=== PATIENT | female | born 1955 | race Caucasian/White ===

== ENCOUNTER 2023-05-25 06:16 | Inpatient (IN) | payer OTHER, SELFPAY ==
[2023-05-17 11:46] VITALS: BMI 25.6
[2023-05-25] VITALS (16 sets, daily range): BP systolic 117–147; BP diastolic 37–85; PULSE 71–96; RESP 10–98; TEMP 35.9–36.6; O2SAT 12–99; BMI 25.2
--- NOTE | 2023-05-25 | DI.RAD.S_ITS ---
PROCEDURE: XR LUMBAR SPINE 2-3V INDICATIONS: tlif l4-5 TECHNIQUE: 2 intraoperative fluoroscopic views of the lumbar spine were acquired. COMPARISON: None. FINDINGS: Intraoperative fluoroscopic images shows posterior fusion at L4-5 level with surgical hardware in place and intervertebral spacers seen. IMPRESSION: Fluoro guidance was provided intraoperatively for posterior fusion at L4-5 level. Dictated by: Mathew Gómez M.D. on 05/25/2023 at 12:19 Approved by: Mathew Gómez M.D. on 05/25/2023 at 12:19
[2023-05-25] MEDS: LACTATED RINGERS 1,000 ML 42 ML IV ×2 (06:38→12:31)
--- NOTE | 2023-05-25 07:44 | PM.PREOP ---
Pre-operative Note Interval Note History & Physical reviewed/Exam performed by Physician: Yes Changes to H&P: No
[2023-05-25] MEDS: CEFAZOLIN 2 GM/100 ML PREMIX 100 ML IV ×2 (08:15→16:29)
--- NOTE | 2023-05-25 08:41 | SUR.OPER ---
Prone on spine table, head in foam head support, padded chest and pelvic supports, gel pad at knees, lower legs supported by pillows; nipples, genitalia and toes free of pressure, arms secured on foam padded arm boards at <90 degrees abduction. Tape over blanket at thigh secured to table.
[2023-05-25] MEDS: BUPIVACAINE 0.25% (PF) 60 ML, EPINEPHrine 0.15 MG INJ (08:57)
[2023-05-25] MEDS: BUPIVACAINE LIPOSOME 266 MG/20 ML VIAL INJ (08:57)
--- NOTE | 2023-05-25 11:08 | P.OP_ITS ---
Operative Date/Time/Diagnoses Date of procedure: 05/25/23 Time of procedure: 07:50 Pre-op diagnosis: 1. L4-5 spinal stenosis with neurogenic claudication 2. L4-5 foraminal stenosis with radiculopathy Post-op diagnosis: same Procedure & Clinicians Procedure: 1. L4-5 Postero-lateral and posterior interbody fusion 2. L4-5 interbody cage placement. 3. L4-5 decompressive laminectomy with bilateral facetecomies 4. L4-5 Posterior non-segmental instrumentation 5. Beck[place] of bone marrow from iliac crest 6. Utilization of microsurgical technique and operating microscope Same procedure as scheduled: Yes Indications: Patient has been having chronic back pain and worsening lumbar radiculopathy and symptoms of neurogenic claudication. Patient had a prior L5-S1 laminectomy with significant epidural scarring at both L5-S1 level and scar tissue over the L4-5 area from the approach. Patient was found have severe L4-5 central and foraminal stenosis causing neurogenic claudication and radiculopathy. Patient failed multiple conservative management with worsening pain weakness and numbness in her lower extremity. Patient has been having difficulty performing activity of daily living. After discussing risks benefits of treatment options, patient elected proceed with surgery. Surgeon: Lizbeth Mcintyre Crown And Bridge Technician: Liana Romero Click Yes if Unassisted: No Anesthesia Type: General Operative Notes Closure Type: primary Specimen(s): none sent Prosthetic devices, grafts, tissues, transplants, or devices: Globus revolve screws, Rise cage Estimated Blood Loss (mL): 100 Blood products transfused: none Procedure in detail: Patient was seen in the preoperative area. Risks and benefits of the surgery was discussed with the patient. Informed consent was obtained from the patient and placed in the chart. Surgical site was marked. Patient was taken to the operative room. General anesthesia was administered. Prophylactic antibiotic was given to the patient less than 30 min before the incision was made. Patient was placed into a prone position on the Preet table. Patient's back was then prepped and draped in the sterile fashion. Time-out was performed at this time. Using AP and lateral C-arm imaging the interval between L4-5 was identified and marked on patient's back. A 2 inch incision 2 in from midline was made on the right side first. The fascia was incised in line with skin incision. Globus MARS retractors was placed inside the incision and docked onto the L4 lamina. Using microsurgical technique and operating microscope, a L4 laminectomy and L4- 5 facetectomy was performed using a Kerrison rongeur. The laminectomy and facetectomy was performed in order to decompress patient's cauda equina as well as the nerve roots exiting at the L4-5 level. Patient was found have scant amount of epidural scarring and subcutaneous scarring from the previous decompression surgery at L5-S1. The disc space at L4-5 was identified. And a total diskectomy was performed at L4-5 level. The endplates were decorticated using a rasp and shaver. The total diskectomy and decortication was performed at L4-5 level in order to to accomplish a L4-5 fusion. The local bone from the laminectomy and facetectomy was saved for local bone grafting. After the total diskectomy and decortication was completed, DBM bone graft material was combined with local bone that was harvested earlier. At this time, a separate skin is incision was made over the iliac crest. A Jamshidi needle was inserted into the iliac crest through a separate skin incision. 5 cc of bone marrow aspiration was obtained through the separate skin incision using a Jamshidi needle from the iliac crest. The bone marrow aspiration was combined with local bone and the DBM bone grafting material. The bone grafting material was placed into the L4-5 interbody space along with a expandable cage. The cage was expanded to its maximum height using the torque limiting screwdriver. At this time a mirror image incision was made on the left side. The fascia was incised in line with the skin incision. Globus MARS retractor was inserted and docked onto the L4-5 posterolateral gutter. Using the power drill, posterior- lateral decortication was performed at L4-5 level until bleeding cortical bone was identified. The remaining bone grafting material was placed into the L4-5 posterior lateral gutter he order to accomplish posterolateral fusion at the L4- 5 level. Using the double C-arm technique, pedicle screws were placed into the L4-5 pedicles bilaterally. This was done by placing the Jamshidi needle into the pedicles, then placing the guidewires over the Jamshidi needle, and finally placing the cannulated screws over the guidewires bilaterally. After the pedicle screws were placed, 2 titanium rods was locked into the heads of the pedicle screws using locking caps and torque limiting screwdriver. After all the hardware was placed, and confirmed with AP and lateral C-arm imaging, the wound was then irrigated with sterile normal saline and packed with Ray-Jane gauze for 3 min to accomplish hemostasis. After the gauze was removed the deep fascia was closed with #1 Vicryl suture. The subcutaneous layer was closed with 2-0 Vicryl. The skin was closed with skin devin. Patient tolerated the procedure well. There were no complications. The Operation could not have been safely performed without compromising the technical result or length of the procedure, without the assistance of a skilled surgical scrub tech. The surgical scrub tech was medically necessary for proper positioning, retraction and manipulation of instruments, proper exposure, surgical preparation, and manipulation of tissue. Neuro monitoring was utilized throughout the entire case which was stable throughout entire procedure. Complications: none Post-operative Condition: stable Disposition: PACU Plan for aftercare: Admit to inpatient hospital
[2023-05-25] MEDS: ACETAMINOPHEN IV 1,000 MG/100 ML VIAL 400 MG IV (11:27)
[2023-05-25] MEDS: HYDROMORPHONE 1 MG INJ IV ×2 (11:33→11:40)
[2023-05-25] MEDS: methocarbamoL 500 MG TABLET PO ×2 (11:54→14:40)
--- NOTE | 2023-05-25 12:52 | SUR.PHASEI ---
Transfered to room 214 in bed on 4L NC with 1 belongings bag. O2 sat on arrival 99%. Pt awake, alert and talking. Small 1inch cirle of shadow drainage on dressing.
[2023-05-25] MEDS: LACTATED RINGERS 1,000 ML 125 ML IV (13:38)
[2023-05-25] MEDS: HYDROMORPHONE 0.5 MG INJ IV (13:40)
--- NOTE | 2023-05-25 15:15 | PT.IIE ---
Current Diagnoses Spinal stenosis, lumbar region with neurogenic claudication (05/25/23) Intervertebral disc disorders with radiculopathy, lumbar region (05/25/23) Surgery Performed Operation Date: 05/25/23 07:45 Actual Procedures p L4-5 TLIF(Not Applicable) - Lizbeth Mcintyre MD Surgical History (Last Updated 05/17/23 @ 13:09 by Michelle Anders, RN) History of ankle surgery (2015) History of surgical removal of ganglion cyst Hx of laminectomy (2011) Medical History (Last Updated 05/17/23 @ 13:10 by Michelle Anders RN) LBBB (left bundle branch block) Mass of fallopian tube (04/2023) Sciatica Spinal stenosis Physical Therapy Inpatient Evaluation/Re-Eval M1 PT/OT-IP Prior Functional Status Start: 05/25/23 17:22 Freq: NEEDED Status: Active Protocol: Document 05/25/23 15:15 AB (Rec: 05/25/23 17:35 AB [id number]) Medical Review Prior Functional Status Medical History Reviewed Yes Communication able to make needs known Mobility and Gait pt stated that she was modified independent with all mobilities and ambulation wtithout AD but uses a FWW and a foot stool to get into the bed. Social History Household Members spouse Living Arrangements House Number of Floors (Floors) One Floor Number of Stairs To Enter/Railing? 2 platform steps to enter the house Home Environment Standard Height Toilet,Walk in Shower,Built-In Shower Seat Home Equipment Grab Bars In Shower Additional Social History Comment pt stated that her sons lives around the same property of where they live pt has an adjustable bed pt has a standard walker at home; spouse just ordered wheel attachments for pt's walker M2 PT-IP Current Condition Start: 05/25/23 17:22 Freq: NEEDED Status: Active Protocol: Document 05/25/23 15:15 AB (Rec: 05/25/23 17:35 AB [id number]) Physical Therapy Current Condition Current Condition Evaluation Date 05/25/23 Treatment Diagnosis s/p L4-5 TLIF; difficulty in walking Onset Date 05/25/23 M3 PT-IP Subjective Start: 05/25/23 17:22 Freq: NEEDED Status: Active Protocol: Document 05/25/23 15:15 AB (Rec: 05/25/23 17:35 AB [id number]) Subjective Physical Therapy Visit Type Type Initial Evaluation Visit Start Time 15:15 Visit Stop Time 14:00 Number of OLDER ADULT SOCIAL WORK SPECIALIST Visits 0 Physical Therapy Visit Comments Patient Comments agreeable to do PT Therapy Pain Assessment Pain When Pain Assessed At Rest Pain Present Pain Present Pain Reported Location Left Buttock Intensity 3 Scale Used Numeric (0 - 10) Pain Behaviors Restlessness Pain Management Techniques Distraction,Modification of Treatment,Re-positioning, Timing of Activity with Medications M4 PT-IP Mobility and Gait Start: 05/25/23 17:22 Freq: NEEDED Status: Active Protocol: Document 05/25/23 15:15 AB (Rec: 05/25/23 17:35 [id number]) PT-Bed Mobility Assessment Rolling Level of Assist Standby Assistance Supine to Sit Supine to Sit Standby Assistance PT-Transfer Assessment Sit to and From Stand Sit to and from Stand Contact Guard Assistance,1 Person Assistance,Use of Upper Extremities Equipment Transfer Assistive Device Gait Belt,Front Wheeled Walker Orthotic/Prosthetic Devices or Brace: No Transfers Transfer Destination Chair Transfer Technique ambulated Transfer Ability Level of Assist Contact Guard Assistance,1 Person Assistance,Use of Upper Extremities Comments Mobility Comments pt supine in bed and is very restless with tendency to twist in bed. pt educated regarding her back precautions . obtained PLOF and home set up from pt. post-op folder provided and reviewed with pt. educated on log roll bed mobility. spouse arrived. BP: 133/65. pt completed log roll supine to sit SBA and cues. pt able to sit on EOB SBA. no c/o dizzines. completed sit to stand CGA and cues and pt ambulated in room using FWW CGA. pt sat on the chair and agreed to stay up on the chair. positioned pt on the chair. call light and table placed within reach. Gait Assessment Gait Gait Assistance Required: Contact Guard Assist Distance (Feet) 20 Able to Maintain Weight Bearing Status Yes During Gait Assistive Devices Assistive Device Gait Belt,Front Wheeled Walker Orthotic/Prosthetic Devices or Brace: No Gait Deviations General Gait Pattern Decreased Stride Length, Decreased Feet Clearance Factors Limiting Gait Function Factors Limiting Gait Function Decreased Activity Tolerance, Decreased Strength,Limited Range of Motion,Pain,Poor Balance,Poor Safety Awareness PT-Balance Assessment Sitting Balance and Reactions Static Sitting Balance Ability Good Dynamic Sitting Balance Ability Good Standing Balance and Reactions Static Standing Balance Ability Fair Dynamic Standing Balance Ability Fair Device Used FWW M5 PT-IP Objective Assessments Start: 05/25/23 17:22 Freq: NEEDED Status: Active Protocol: Document 05/25/23 15:15 AB (Rec: 05/25/23 17:35 AB [id number]) Orientation Orientation/Cognition Level of Alertness Alert Orientation Name,Place,Situation Language Function Ability No Deficits Noted Safety Awareness Decreased Safety Awareness Memory Description Short Term Impaired Gross Range of Motion Lower Extremity ROM Assessment Within Functional Limits Strength Lower Extremity Strength Assessment Bilaterally Impaired Hip 3+/5 Knee 4-/5 Sensation Assessment Sensation Gross Sensation WNL Muscle Tone Muscle Tone WNL Yes M6 PT-IP Treatment Start: 05/25/23 17:22 Freq: NEEDED Status: Active Protocol: Document 05/25/23 15:15 AB (Rec: 05/25/23 17:35 AB [id number]) Physical Therapy Treatment Education Education Provided Precautions,Weight Bearing Status,Post-Op Packet,Safety M7 PT-IP Assessment and Plan Start: 05/25/23 17:22 Freq: NEEDED Status: Active Protocol: Document 05/25/23 15:15 AB (Rec: 05/25/23 17:35 AB [id number]) PT Summary Assessment and Plan Potential Rehabilitation Potential Fair Status of Condition at Evaluation Evolving Summary Impairments Pain,ROM,Strength,Balance, Coordination,Sensation,Tone, Cognition,Bed Mobility, Transfers,Gait,Activity Tolerance Assessment Summary pt is a 67 y/o F s/p L4-5 TLIF POD 0. pt has back precautions. pt requiring CGA with mobility and cues for back precautions and safety. c/o increase pain more on L buttock than LBP affecting assistance and safety. pt plans to go home and spouse to assist her. caregiver training set up tomorrow at 9 am. will continue to assess progress. Goals Bed Mobility Goal Independent Transfer Goal Independent,Front Wheeled Walker Gait Goal Independent,Front Wheel Walker Gait Distance 200 Other Goals up/down 2 platform steps using FWW SBA up/down step stool backwards to get into high bed using fWW SBA Days to Meet Goals 5 Frequency of Treatment Frequency Of Treatment Twice a Day Treatment Plan Physical Therapy Treatment Plan Bed Mobility Training,Transfer Training,Gait Training, Therapeutic Exercise,Balance Retraining,Post Op Education, Discharge Planning,Hot or Cold Pack,Neuromuscular Re-ed, Coordination Retraining,Manual Therapy Precautions Lumbar Precautions Log Roll,No Twisting,Limit Bending,Lifting Restriction of 10 lbs,Gait Belt above Incisional Area Recommendations To Nursing Amount of Assist Needed 1 Person Assist Discharge Recommendations PT Discharge Recommendations Home with Assistance Equipment Needed for Home Before FWW Discharge Transportation Needs at Discharge Private Vehicle
[2023-05-25] MEDS: OXYCODONE IR 10 MG TABLET PO ×2 (16:06→20:24)
[2023-05-25] MEDS: ACETAMINOPHEN 325 MG TABLET 650 MG PO (18:04)
--- NOTE | 2023-05-25 18:04 | PC.NURSE ---
Patient arrives from PACU this afternoon at approximately 1245 pm. She is initially restless and turning all around in the bed, despite instructions on spinal precautions. Dressing to back with small shadow drainage. No other wounds/rashes observed. She denies numbness to BLE's or BUE's, +CMS+2.She reports pain to L buttock intense and extremely tight at 8/10. She is given prn hydromorphone 0.5mg IV and naps shortly afterwards. She awakens and reports not being able to get comfortable in bed due to hip tightness and sits at EOB and stands with FWW. PA notified of spasms and tightness in her left buttock and per orders, administered 500mg methocarbomal. RN gives ice pack and cold pack to alternate to buttock. Patient is able to participate with PT and able to void mulitple times in the toilet this afternoon, but tearful due to pain. 10 mg prn oxycodone prn given with good effect and patient reports pain 3/10. Continuous monitoring, bed alarm on, IVF LR at 125ml/hr, fall precautions,scd's on, oriented to room.
[2023-05-25] MEDS: DOCUSATE 100 MG CAPSULE PO (20:23)
[2023-05-25] MEDS: SENNOSIDES 8.6 MG TABLET 17.2 MG PO (20:23)
[2023-05-26] MEDS: OXYCODONE IR 10 MG TABLET PO (00:02)
[2023-05-26] MEDS: CEFAZOLIN 2 GM/100 ML PREMIX 100 ML IV (00:02)
[2023-05-26 00:39] VITALS: BP 131/53; PULSE 67; RESP 16; TEMP 36.1; O2SAT 95
[2023-05-26] MEDS: OXYCODONE IR 5 MG TABLET PO ×3 (03:34→09:23)
[2023-05-26 06:00] VITALS: BP 125/43; PULSE 77; RESP 18; TEMP 36; O2SAT 99
[2023-05-26] MEDS: ACETAMINOPHEN 325 MG TABLET 650 MG PO (06:18)
--- NOTE | 2023-05-26 07:43 | P.DS_ITS ---
History of Present Illness History of Present Illness Date Patient Seen: 05/26/23 Time Patient Seen: 07:43 Chief complaint: INPT Narrative: Procedure: 1. L4-5 Postero-lateral and posterior interbody fusion 2. L4-5 interbody cage placement. 3. L4-5 decompressive laminectomy with bilateral facetecomies 4. L4-5 Posterior non-segmental instrumentation 5. [place] of bone marrow from iliac crest 6. Utilization of microsurgical technique and operating microscope Same procedure as scheduled: Yes Indications: Patient has been having chronic back pain and worsening lumbar radiculopathy and symptoms of neurogenic claudication. Patient had a prior L5-S1 laminectomy with significant epidural scarring at both L5-S1 level and scar tissue over the L4-5 area from the approach. Patient was found have severe L4-5 central and foraminal stenosis causing neurogenic claudication and radiculopathy. Patient failed multiple conservative management with worsening pain weakness and numbness in her lower extremity. Patient has been having difficulty performing activity of daily living. After discussing risks benefits of treatment options, patient elected proceed with surgery. Surgeon: Lizbeth Mcintyre Seed Expert: Liana Romero Anesthesia Type: General Operative Notes Closure Type: primary Specimen(s): none sent Prosthetic devices, grafts, tissues, transplants, or devices: Globus revolve screws, Rise cage Estimated Blood Loss (mL): 100 Blood products transfused: none Discharge Providers Provider Date of admission: 05/25/23 06:16 Discharge Date: 05/26/23 Primary care physician: Luz Lucio MD Consults: 05/18/23 10:36 Consult to Anesthesiology Routine Comment: Consulting Provider: Anesthesiologist Reason for consultation: PAC courtesy re: Abnormal pre-op EKG 05/25/23 12:31 Consult to Occupational Therapy Evaluate & Treat Comment: Physician Instructions: Evaluate and treat Consult to Physical Therapy Evaluate & Treat Comment: Physician Instructions: Evaluate and Treat Discharge provider: Rashawn Cueva PA-C Summary Hospital Course Discharge Diagnosis: Status post lumbar fusion Hospital Course: Multi-modal pain control. Physical therapy Status at Discharge Cognitive/behavioral status at discharge: oriented Functional status at discharge: uses cane/walker Overall status at discharge: patient is back to baseline Time Spent with Patient Time spent: Less than 30 minutes Exam Vital Signs (past 8 hours): - 05/26/23 00:39 05/26/23 06:00 Temperature 97 F L 96.8 F L Pulse Rate 67 77 Respiratory Rate 16 18 Blood Pressure 131/53 L 125/43 L Pulse Oximetry 95 99 Oxygen Flow Rate 0 0 Oxygen Delivery Method Nasal Cannula Oxygen Flow Rate 0 Narrative Exam Narrative: Patient is found lying comfortably in bed. She has a little bit decreased sensation over her right quad. Pain is controlled with oral medications when she requests them. She has been able to ambulate and urinate on her own. Sensation grossly intact to lower extremities bilaterally. Bilaterally lower extremities able to flex and extend at both knees. Dorsal and plantar flex at both ankles. Flex and extend bilateral EHL. [facility] Medical History (Updated 05/17/23 @ 13:10 by Michelle Anders RN) Mass of fallopian tube (04/2023) LBBB (left bundle branch block) Spinal stenosis Sciatica Surgical History (Updated 05/17/23 @ 13:09 by Michelle Anders RN) Hx of laminectomy (2011) History of surgical removal of ganglion cyst History of ankle surgery (2015) Social History household members: spouse Smoking Status: Former smoker alcohol intake: current Discharge Assessment & Plan Assessment and Plan Assessment: Status post lumbar fusion. Plan of Treatment: Discharge home with family. Patient has already obtained postoperative medications and instructions on how to use them. No deep bending or twisting at the waist. No lifting more than 10 pounds. Follow up with [facility] in 2 weeks for wound check. Discharge Plan Discharge Plan Patient Disposition: Home Provider Discharge Comment: DC pending PT approval Discharge orders & Medications Prescriptions: No Action No Known Home Medications Follow up/Referrals: Luz Lucio MD [Primary Care Provider] - Diet/Activity/Treatments Diet: Diet as Tolerated Activity: No deep bending or twisting at the waist. No lifting more than 10 pounds. Cold/Heat Therapy: Heating pad to low back as needed for pain. Skin/Wound/Dressing Care Report to your healthcare provider any signs of infection, such as:: chills, fever, night sweats, unusual drainage and unusual redness Dressing: May shower. Keep dressing as dry as possible. If dressing becomes wet or dirty, remove and replace with clean, dry gauze. Visit Report/Discharge Packet Stand Alone Forms: Patient Portal/API, Stroke Signs & Symptoms Discharge Data Primary Care Provider: Luz Lucio Quality VTE Deep Vein Thrombosis/Pulmonary Embolism Present on Admission: No
[2023-05-26 08:00] VITALS: BP 123/63; PULSE 71; RESP 16; TEMP 36.2; O2SAT 97
[2023-05-26] MEDS: DOCUSATE 100 MG CAPSULE PO (08:11)
[2023-05-26] MEDS: methocarbamoL 500 MG TABLET PO (08:13)
[2023-05-26] MEDS: polyethylene glycoL 3350 17 GM POWD.PACK PO (08:13)
--- NOTE | 2023-05-26 08:50 | PT.IPTN ---
Current Diagnoses Spinal stenosis, lumbar region with neurogenic claudication (05/25/23) Intervertebral disc disorders with radiculopathy, lumbar region (05/25/23) Surgery Performed Operation Date: 05/25/23 07:45 Actual Procedures p L4-5 TLIF(Not Applicable) - Lizbeth Mcintyre MD Physical Therapy Treatment Note M2 PT-IP Current Condition Start: 05/25/23 17:22 Freq: NEEDED Status: Active Protocol: Document 05/25/23 15:15 AB (Rec: 05/25/23 17:35 AB [id number]) Physical Therapy Current Condition Current Condition Evaluation Date 05/25/23 Treatment Diagnosis s/p L4-5 TLIF; difficulty in walking Onset Date 05/25/23 M3 PT-IP Subjective Start: 05/25/23 17:22 Freq: NEEDED Status: Active Protocol: Document 05/26/23 10:11 TS (Rec: 05/26/23 10:19 TS [id number]) Subjective Physical Therapy Visit Type Type Treatment Note Visit Start Time 08:50 Visit Stop Time 09:15 Number of SNOW REMOVAL/PLOWING Visits 1 Physical Therapy Visit Comments Patient Comments Pt standing up in room ambulating, spouse not present for start of caregiver training. Therapy Pain Assessment Pain When Pain Assessed During Mobility Pain Present Pain Present Pain Reported M4 PT-IP Mobility and Gait Start: 05/25/23 17:22 Freq: NEEDED Status: Active Protocol: Document 05/26/23 10:11 TS (Rec: 05/26/23 10:19 TS [id number]) PT-Bed Mobility Assessment Supine to Sit Supine to Sit Standby Assistance Sit to Supine Sit to Supine Standby Assistance Scooting Scooting to Edge of Bed Standby Assistance PT-Transfer Assessment Sit to and From Stand Sit to and from Stand Standby Assistance Equipment Transfer Assistive Device Gait Belt,Front Wheeled Walker Orthotic/Prosthetic Devices or Brace: No Comments Mobility Comments Pt recalled 3/3 spinal precautions. She ambulated ~ 250'SBA with FWW. She performed steps x2 with FWW on platform step. She ambulated back to room, spouse arrived for training. She performed backwards step with FWW on step stool to get in bed SBA. Sit to supine SBA with logroll . supine to sit SBA to upright trunk SBA. She was left in chair with all needs met. Gait Assessment Gait Gait Assistance Required: Standby Assistance Distance (Feet) 250 Able to Maintain Weight Bearing Status Yes During Gait Assistive Devices Assistive Device Gait Belt,Front Wheeled Walker Orthotic/Prosthetic Devices or Brace: No Gait Deviations General Gait Pattern Decreased Stride Length, Decreased Feet Clearance Factors Limiting Gait Function Factors Limiting Gait Function Decreased Activity Tolerance, Decreased Strength,Limited Range of Motion,Pain,Poor Balance,Poor Safety Awareness Comments Gait Comments See mobility comments Stair Climbing Assessment Evaluation Level of Assist On Stairs Standby Assistance Devices Stair Climbing Assistive Devices Front Wheel Walker Technique/Endurance Stair Climbing Direction Ascend and Descend Stair Climbing Technique Step to Step Number of Steps Climbed 2 PT-Balance Assessment Sitting Balance and Reactions Static Sitting Balance Ability Good Dynamic Sitting Balance Ability Good Standing Balance and Reactions Static Standing Balance Ability Fair Dynamic Standing Balance Ability Fair Device Used FWW M5 PT-IP Objective Assessments Start: 05/25/23 17:22 Freq: NEEDED Status: Active Protocol: Document 05/25/23 15:15 AB (Rec: 05/25/23 17:35 AB [id number]) Orientation Orientation/Cognition Level of Alertness Alert Orientation Name,Place,Situation Language Function Ability No Deficits Noted Safety Awareness Decreased Safety Awareness Memory Description Short Term Impaired Gross Range of Motion Lower Extremity ROM Assessment Within Functional Limits Strength Lower Extremity Strength Assessment Bilaterally Impaired Hip 3+/5 Knee 4-/5 Sensation Assessment Sensation Gross Sensation WNL Muscle Tone Muscle Tone WNL Yes M6 PT-IP Treatment Start: 05/25/23 17:22 Freq: NEEDED Status: Active Protocol: Document 05/26/23 10:11 TS (Rec: 05/26/23 10:19 TS [id number]) Physical Therapy Treatment Education Education Provided Precautions,Weight Bearing Status,Post-Op Packet,Safety M7 PT-IP Assessment and Plan Start: 05/25/23 17:22 Freq: NEEDED Status: Active Protocol: Document 05/26/23 10:11 TS (Rec: 05/26/23 10:19 TS [id number]) PT Summary Assessment and Plan Potential Rehabilitation Potential Fair Summary Impairments Pain,ROM,Strength,Balance, Coordination,Sensation,Tone, Cognition,Bed Mobility, Transfers,Gait,Activity Tolerance Progress Towards Goals Progressing Toward Goals Assessment Summary Jessica is making good progress with her mobility. She is ambulating SBA with FWW and step thru gait ~250'. She performed steps x2 SBA with FWW on platform step. She performed all bed mobility SBA with no cues. PT is recommending pt return home with assist. Goals Bed Mobility Goal Independent Transfer Goal Independent,Front Wheeled Walker Gait Goal Independent,Front Wheel Walker Gait Distance 200 Other Goals up/down 2 platform steps using FWW SBA up/down step stool backwards to get into high bed using fWW SBA Days to Meet Goals 5 Frequency of Treatment Frequency Of Treatment Twice a Day Treatment Plan Physical Therapy Treatment Plan Bed Mobility Training,Transfer Training,Gait Training, Therapeutic Exercise,Balance Retraining,Post Op Education, Discharge Planning,Hot or Cold Pack,Neuromuscular Re-ed, Coordination Retraining,Manual Therapy Precautions Lumbar Precautions Log Roll,No Twisting,Limit Bending,Lifting Restriction of 10 lbs,Gait Belt above Incisional Area Recommendations To Nursing Amount of Assist Needed Standby Assistance Discharge Recommendations PT Discharge Recommendations Home with Assistance Equipment Needed for Home Before FWW Discharge Transportation Needs at Discharge Private Vehicle
--- NOTE | 2023-05-26 10:04 | OT.IP.EVAL ---
Current Diagnoses Spinal stenosis, lumbar region with neurogenic claudication (05/25/23) Intervertebral disc disorders with radiculopathy, lumbar region (05/25/23) Surgery Performed Operation Date: 05/25/23 07:45 Actual Procedures p L4-5 TLIF(Not Applicable) - Lizbeth Mcintyre MD Past Medical History (Last Updated 05/17/23 @ 13:10 by Michelle Anders, RN) LBBB (left bundle branch block) Mass of fallopian tube (04/2023) Sciatica Spinal stenosis Surgical History (Last Updated 05/17/23 @ 13:09 by Michelle Anders RN) History of ankle surgery (2015) History of surgical removal of ganglion cyst Hx of laminectomy (2011) Occupational Therapy Inpatient Evaluation/Re-Eval M1 PT/OT-IP Prior Functional Status Start: 05/25/23 17:22 Freq: NEEDED Status: Active Protocol: Document 05/26/23 14:59 CGR (Rec: 05/26/23 15:12 CGR [id number]) Medical Review Prior Functional Status Medical History Reviewed Yes Communication Pt is an effective verbal communicator Mobility and Gait pt stated that she was independent with all mobilities and ambulation wtithout AD but uses a FWW and a foot stool to get into the bed. Activities of Daily Living and IADL's Pt was indepentent with all ADLs with extra time but states that toileting was the hardest for her to perform. Social History Household Members spouse Living Arrangements House Number of Floors (Floors) One Floor Number of Stairs To Enter/Railing? 2 platform steps to enter the house Home Environment Standard Height Toilet,Walk in Shower,Built-In Shower Seat Home Equipment Grab Bars In Shower Additional Social History Comment pt stated that her sons lives around the same property of where they live pt has an adjustable bed pt has a standard walker at home; spouse just ordered wheel attachments for pt's walker M2 OT-IP Current Condition Start: 05/26/23 14:59 Freq: Status: Active Protocol: Document 05/26/23 14:59 CGR (Rec: 05/26/23 15:12 CGR [id number]) Occupational Therapy Current Condition Current Condition Evaluation Date 05/26/23 Treatment Diagnosis l4-5 TLIF Diagnosis Onset Date 05/25/23 Post Operative Precautions Lumbar Precautions Log Roll,No Twisting,Limit Bending,Lifting Restriction of 10 lbs,Gait Belt above Incisional Area M3 OT- IP Subjective and Pain Start: 05/26/23 14:59 Freq: Status: Active Protocol: Document 05/26/23 14:59 CGR (Rec: 05/26/23 15:12 CGR [id number]) OT- Subjective Occupational Therapy Visit Type Type Initial Evaluation Visit Start Time 09:30 Visit Stop Time 10:04 OT Pain Assessment Pain When Pain Assessed At Rest Pain Present Pain Present Pain Reported Location Left Buttock Intensity 5 Scale Used Numeric (0 - 10) Management Techniques Distraction,Modification of Treatment,Re-positioning, Timing of Activity with Medications M4 OT- IP ADL's Start: 05/26/23 14:59 Freq: Status: Active Protocol: Document 05/26/23 14:59 CGR (Rec: 05/26/23 15:12 CGR [id number]) OT [id number] Comments OT Self-Feeding Comments not meal time OT ADL-Grooming Comments OT Grooming Comments Pt declined to perform, wants to do when she gets home OT ADL-Oral Care Comments Oral Care Comments Pt declined to perform, wants to do when she gets home OT ADL-Dressing General Eval Upper Body Dressing Ability Independent Lower Body Dressing Ability Standby Assistance Areas Needing Assistance Underpants/Brief,Pants/Shorts, Socks,Shoes Assistive Devices Dressing Assistive Devices Precipitator,Sock Aid Comments OT Dressing Comments Pt dressed for discharge and performed LB dressing using DME after education and demonstration of equipment. OT ADL-Toileting General Evaluation Toileting Ability Independent Areas Needing Assistance Manage Clothing,Perform Perineal Hygiene Comments OT Toileting Comments on toilet OT ADL-Bathing Comments OT Bathing Comments not performed M5 OT- IP IADL's Start: 05/26/23 14:59 Freq: Status: Active Protocol: Document 05/26/23 14:59 CGR (Rec: 05/26/23 15:12 CGR [id number]) OT-Instrumental Activities of Daily Living Deficits IADL Deficits Identified No Deficits Home Safety Awareness Awareness of Need for Assistance at Home Good Awareness Ability to Problem Solve Emergency Able to Problem Solve Situations Medication Management Medication Management No Deficits Identified Money Management Money Management No Deficits Identified Meal Preparation Meal Preparation No Deficits Identified .Net Programmer .Net Programmer Caregiver Provides Assist Driving Driving Comments pt does not drive at baseline M6 OT- IP Functional Cognition Start: 05/26/23 14:59 Freq: Status: Active Protocol: Document 05/26/23 14:59 CGR (Rec: 05/26/23 15:12 CGR [id number]) Cognitive Factors Limiting Selfcare Function Cognitive Ability Level of Alertness Alert Patient Orientation Name,Age,Birthday,Month,Date, Year,Day of Week,Place, Situation Attention Span Ability Capable of Focused Attention, Capable of Sustained Attention Ability to Follow Commands Able to Follow One Step Commands with Increased Time, Able to Follow One Step Commands with Repetition OT- Vision and Hearing OT- Hearing Assessment OT- Hearing Assessment WFL OT- Vision Assessment Visual Acuity Glasses All The Time Visual Attentiveness WFL Occular Pursuits WFL Visual Convergence WFL Vision Assessment Comments Pt wears bifocals M7 OT- IP Mobility and Balance Start: 05/26/23 14:59 Freq: Status: Active Protocol: Document 05/26/23 14:59 CGR (Rec: 05/26/23 15:12 CGR [id number]) OT-Transfer Assessment Sit to and From Stand Sit to and from Stand Standby Assistance Transfers Transfer Ability Standby Assistance Technique Transfer Destination Chair,Toilet Transfer Technique Stand Step Pivot Devices Transfer Assistive Devices Gait Belt,Front Wheeled Walker Comments Mobility Comments mobility around the room and bathroom OT- Balance Assessment Sitting Balance and Reactions Static Sitting Balance Ability Good Dynamic Sitting Balance Ability Good M8 OT- IP Objective Assessments Start: 05/26/23 14:59 Freq: Status: Active Protocol: Document 05/26/23 14:59 CGR (Rec: 05/26/23 15:12 CGR [id number]) OT Gross Range of Motion Upper Extremity Range of Motion Assessment Within Functional Limits OT Strength Upper Extremity Strength Assessment Within Functional Limits Comments Strength Comments grossly 4+/5, shlds not tested to full strength d/t recent back sx. OT- Coordination Assessment Upper Extremity Finger to Nose Test Within Functional Limits Finger Tapping Test Within Functional Limits OT-Muscle Tone Assessment Muscle Tone WNL Yes OT Sensation Assessment Edema Edema Absent M9 OT- IP Assessment and Plan Start: 05/26/23 14:59 Freq: Status: Active Protocol: Document 05/26/23 14:59 CGR (Rec: 05/26/23 15:12 CGR [id number]) OT Summary Assessment and Plan Potential Rehabilitation Potential Excellent Analytic Complexity at Evaluation Low Summary OT Impairments Pain,Balance,Dressing, Toileting,Bathing,Toilet Transfers,Shower Transfers, Activity Tolerance Progress Towards Goals Progressing Toward Goals Assessment Summary Pt presents as a low complexity evaluation s/p admit for L4-5 TLIF. Pt c/o pain to the L glut area. Educated on muscle soreness to that area and instructed pt's spouse on massage to assist with releasing muscle soreness . Pt then moved around the room and performed TB dressing . Pt educated on LB dressing equipment and purchaed hip kit on [employer] for pt's use. Not further OT needs. Frequency of Treatment Frequency Of Treatment Discharge Discharge Recommendations OT Discharge Recommendations Home with Assistance Transportation Needs at Discharge Private Vehicle
--- NOTE | 2023-05-26 12:52 | PC.NURSE ---
Patient cleared for discharge today after working with PT. She is able to ambulate independently with SBA. She verbalizes understanding of discharge medications, activity limitations, site care, s/sx of infection, as well as follow up appointment. Dressing to back changed and at bedside verbalizes understanding of site care. Daphne c/d/i without swelling or inflammation, moderate bruising surrounding surgical area. She is escorted via w/ch to private vehicle with and all of her belongings at 1025 a.m. for discharge home today.
--- NOTE | 2023-05-26 14:02 | CM.DANOTE ---
Discharge Planning/Care Management Advanced directive, confirm from FAMILY Start: 05/25/23 16:52 Freq: Q24H Status: Discharge Protocol: Document 05/25/23 19:00 MW (Rec: 05/25/23 20:12 MW [id number]) Advance Directive, confirm on record Time 19:00 Person contacted pt Copy received No CM Discharge Assessment Start: 05/26/23 14:00 Freq: Status: Discharge Protocol: Document 05/26/23 14:00 ARIANA (Rec: 05/26/23 14:02 ARIANA [id number]) Discharge Planning Assessment Assigned [employer] Learning Support Teacher DA Cunningham DPOA/Assigned Designee Name Corey Johnson, spouse Contact Information [phone] Advance Directives? Yes Advance Directives on File No History Provided By Patient,Medical Record Prior Living Arrangements House Household Members spouse Type of transporation used prior to Drives own vehicle admit Independent with ADL's Yes Is patient alert and oriented? Yes Patient/Family Preference OP PT Therapy Barriers to Discharge No Comment Patient POD1 from TLIF. patient planned for return home w/family to assist and has been cleared by therapies for this plan. No needs from this CM team. Discharge Plan Home Transportation Arrangement Family Referrals Initiated None needed
== END 2023-05-26 10:25 | disposition home or self-care (01) | DRG 455 ==
PROVIDERS: Admitting Provider Orthopaedic Surgery Orthopaedic Surgery of the Spine; PCP Family Medicine; Referring Provider Orthopaedic Surgery Orthopaedic Surgery of the Spine; Visit Provider Orthopaedic Surgery Orthopaedic Surgery of the Spine
PROC: 0SG00AJ Fusion of Lumbar Vertebral Joint with Interbody Fusion Device, Posterior Approach, Anterior Column, Open Approach (ICD-10-PCS; principal; 2023-05-25 07:45)
DX: M48.062 Spinal stenosis, lumbar region with neurogenic claudication (principal); M47.26 Other spondylosis with radiculopathy, lumbar region; M96.1 Postlaminectomy syndrome, not elsewhere classified
CPT/HCPCS: 72100; 76000; 97116; 97162; 97165; 97530; 97535; C1713; C9290; J0136; J0171; J0330; J0690; J1100; J1170; J2405; J2704